=== PATIENT | female | born 1960 ===

== ENCOUNTER 2024-07-05 12:30 | Inpatient (IN) | payer OTHER ==
[~2024-07-05] VITALS: Ht 121.9 cm; Wt 59.0 kg
[2024-07-06] MEDS ORDERED: SYNTHROID75 MCG PO (07:52)
[2024-07-06] MEDS ORDERED: ATORVASTATIN CA10 MG PO (07:52)
[2024-07-06] MEDS ORDERED: SYNTHROID50 MCG PO (07:52)
[2024-07-06] MEDS ORDERED: COZAAR50 MG PO (07:53)
[2024-07-06] MEDS ORDERED: VITAMIN D310 MC4 (07:53)
[2024-07-11] MEDS ORDERED: METRONIDAZOLE/SODIUM CHLORIDE 500 MG/100 ML PIGGYBACK IV ONE ×2 (12:03→14:00)
[2024-07-11] MEDS ORDERED: LIDOCAINE HCL 1%/EPINEPHRINE 20ML VIAL IJ ONE (14:00)
[2024-07-11] MEDS ORDERED: levoFLOXacin IN DEXTROSE 5 % 5 MG/ML PIGGYBAG IV ONE (14:00)
[2024-07-11] MEDS ORDERED: BUPIVACAINE HCL 30 ML VIAL IJ ONE (14:00)
[2024-07-11] MEDS ORDERED: ONDANSETRON HCL 2 MG/ML VIAL ONE (15:25)
[2024-07-11] MEDS ORDERED: MORPHINE SULFATE 4 MG/ML VIAL IV ONE ×2 (15:25→15:55)
[2024-07-11] MEDS ORDERED: ENALAPRILAT DIHYDRATE 1.25 MG/ML VIAL IV PRN (18:00)
[2024-07-11] MEDS ORDERED: MORPHINE SULFATE 4 MG/ML CARTRIDGE IV PRN (18:00)
[2024-07-11] MEDS ORDERED: RINGERS SOLUTION,LACTATED 1,000 ML IV SCH (18:00)
[2024-07-11] MEDS ORDERED: OxyCODONE HCL 5 MG TABLET (ROXICODONE) PO PRN (18:00)
[2024-07-11] MEDS ORDERED: ONDANSETRON HCL 2 MG/ML VIAL IV PRN (18:00)
[2024-07-11] MEDS ORDERED: ENALAPRILAT DIHYDRATE 1.25 MG/ML VIAL IV ONE (18:40)
[2024-07-11 19:10] VITALS: BP 155/73; O2SAT 95
[2024-07-11] MEDS ORDERED: ACETAMINOPHEN 500 MG GEL..CAP PO SCH (20:00)
[2024-07-11] MEDS ORDERED: SIMETHICONE 125 MG CAPSULE PO SCH (21:00)
[2024-07-11] MEDS ORDERED: FAMOTIDINE/PF 20 MG/2 ML VIAL IV PUSH SCH (21:00)
[2024-07-12 00:18] VITALS: BP 156/74; O2SAT 97
[2024-07-12] MEDS ORDERED: METOCLOPRAMIDE HCL 5 MG/ML VIAL IV SCH (01:00)
[2024-07-12] MEDS ORDERED: GABAPENTIN 300 MG CAPSULE PO SCH (01:00)
[2024-07-12] MEDS ORDERED: PATIENTS OWN MEDICATION (MEDICAMENTO EN PISO) PO SCH ×2 (06:00)
[2024-07-12 06:47] LABS: HEMOGLOBIN 11.4 g/dL (12.0-15.00); MEAN CORPUSCULAR HEMOGLOBIN 27.9 pg (27.00-32.0); MEAN CORPUSCULAR HGB CONC 33.6 g/dl (32.0-36.0); PLATELET COUNT 263 K/uL (150-450)
[2024-07-12 07:15] LABS: ALBUMIN 3.3 gm/dL (3.4-5.0); CALCIUM 8.9 mg/dL (8.5-10.1); CREATININE SERUM 0.89 mg/dL (0.55-1.02); GFR 63.65; MAGNESIUM 1.7 mg/dL (1.8-2.4); PHOSPHOROUS 3.4 mg/dL (2.5-4.9); POTASSIUM 4.41 mEq/L (3.5-5.1)
[2024-07-12 08:00] VITALS: BP 128/74; O2SAT 97
[2024-07-12] MEDS ORDERED: HYOSCYAMINE SULFATE 0.125 MG TAB.SUBL SL SCH (09:00)
[2024-07-12] MEDS ORDERED: LACTOBACILLUS ACIDOPHILUS 1 CAP CAP PO SCH (09:00)
[2024-07-12] MEDS ORDERED: LOSARTAN POTASSIUM 50 MG TABLET PO SCH (09:00)
[2024-07-12] MEDS ORDERED: MAGNESIUM SULFATE IN WATER 50 ML IV NR (11:45)
[2024-07-12 16:44] VITALS: BP 119/74; O2SAT 95
[2024-07-12] MEDS ORDERED: ENOXAPARIN SODIUM 40 MG/0.4 ML SYRINGE SUBCUTANEO SCH (17:00)
[2024-07-12] MEDS ORDERED: ATORVASTATIN CALCIUM 10 MG TABLET PO SCH (17:00)
[2024-07-12] MEDS ORDERED: POLYETHYLENE GLYCOL 3350 17 GM BLIST.PACK PO SCH (17:00)
[2024-07-13 00:29] VITALS: BP 125/74; O2SAT 94
[2024-07-13 06:49] LABS: HEMATOCRIT 31.8 % (36.0-45.00); HEMOGLOBIN 10.8 g/dL (12.0-15.00); MEAN CELL VOLUME 83.6 fL (80.00-100.00); MEAN CORPUSCULAR HEMOGLOBIN 28.3 pg (27.00-32.0); MEAN CORPUSCULAR HGB CONC 33.8 g/dl (32.0-36.0); PLATELET COUNT 248 K/uL (150-450); RED BLOOD COUNT 3.81 M/uL (4.00-6.00); RED CELL DISTRIBUTION WIDTH 13.8 % (11.5-14.5)
[2024-07-13 07:14] LABS: CALCIUM 8.7 mg/dL (8.5-10.1); CREATININE SERUM 0.84 mg/dL (0.55-1.02); GFR 68.04; MAGNESIUM 1.9 mg/dL (1.8-2.4); PHOSPHOROUS 2.3 mg/dL (2.5-4.9); POTASSIUM 4.03 mEq/L (3.5-5.1)
[2024-07-13 08:00] VITALS: BP 141/73; O2SAT 97
[2024-07-13] MEDS ORDERED: ENOXAPARIN SODIUM 40 MG/0.4 ML SYRINGE SUBCUTANEO SCH (09:00)
[2024-07-13] MEDS ORDERED: POTASSIUM PHOS,M-BASIC-D-BASIC 3 MM/ML VIAL IV ONE (10:00)
[2024-07-13 18:19] VITALS: BP 150/83; O2SAT 99
[2024-07-14 00:47] VITALS: BP 158/81; O2SAT 96
[2024-07-14 00:49] VITALS: BP 122/68; O2SAT 96
[2024-07-14] MEDS ORDERED: LEVSIN/SL0.125 MG SL (08:20)
[2024-07-14] MEDS ORDERED: TRAM1TAB98 PO (08:20)
[2024-07-14] MEDS ORDERED: INTESTINEX680 M1 PO (08:21)
[2024-07-14 09:50] VITALS: BP 120/76; O2SAT 98
== END 2024-07-14 11:22 | disposition home or self-care (01) | DRG 331 ==
LOC: SURG 07-11 06:46 → O/R 07-11 06:46 → SURH 07-11 07:00 → SURG 07-11 17:01
PROVIDERS: Internal Medicine Geriatric Medicine; ADMIT Surgery; ATTEND Surgery
PROC: 0DBP4ZZ Excision of Rectum, Percutaneous Endoscopic Approach (ICD-10-PCS; 2024-07-11)
PROC: 0DJD8ZZ Inspection of Lower Intestinal Tract, Via Natural or Artificial Opening Endoscopic (ICD-10-PCS; 2024-07-11)
PROC: 0DTN4ZZ Resection of Sigmoid Colon, Percutaneous Endoscopic Approach (ICD-10-PCS; principal; 2024-07-11 07:00)
DX: K56.41 Fecal impaction (principal); K63.89 Other specified diseases of intestine; R59.0 Localized enlarged lymph nodes; D64.9 Anemia, unspecified; E78.00 Pure hypercholesterolemia, unspecified; E83.42 Hypomagnesemia